=== PATIENT | female | born 1985 | race Caucasian/White ===

== ENCOUNTER 2023-12-16 16:32 | Emergency (ER) | payer MEDICAID, OTHER ==
[~2023-12-16] VITALS: Ht 154.9 cm; Wt 64.9 kg
[~2023-12-16 16:32] MED LIST: HYDR-3980 PO
[2023-12-16] MEDS ORDERED: KETOROLAC TROMETHAMINE 60 MG INJ IM ONE (17:03)
[2023-12-16] MEDS ORDERED: METHOCARBAMOL 500 MG TABLET ONE (17:03)
[2023-12-16] MEDS: METHOCARBAMOL 500 MG TABLET PO ONE (17:09)
[2023-12-16] MEDS: KETOROLAC TROMETHAMINE 60 MG INJ IM ONE (17:09)
[2023-12-16] MEDS ORDERED: METH-806 PO (17:24)
[2023-12-16] MEDS ORDERED: KETO10TA2 PO (17:24)
[2023-12-16 17:40] VITALS: BP 109/81; O2SAT 99
== END 2023-12-16 17:42 | disposition home or self-care (01) ==
LOC: ER 16:36
DX: S39.012A Strain of muscle, fascia and tendon of lower back, initial encounter (principal); Z79.891 Long term (current) use of opiate analgesic; Z79.899 Other long term (current) drug therapy; X58.XXXA Exposure to other specified factors, initial encounter; Y93.89 Activity, other specified; Y92.89 Other specified places as the place of occurrence of the external cause; Y99.2 Volunteer activity
CPT/HCPCS: 99283; 96372; J1885; A4606; A4663